=== PATIENT | female | born 1980 | race Caucasian/White ===

== ENCOUNTER 2019-05-27 06:10 | Inpatient (IN) ==
[2019-05-27] MEDS ORDERED: D5 1/2 NS 1000 ML 1,000 ML IV SCH (06:36)
[2019-05-27] MEDS ORDERED: ANCEF VIAL 1 GRAM IVP ONE (06:36)
[2019-05-27] MEDS ORDERED: METHYLENE BLUE 1% INJ ONE (06:37)
[2019-05-27] MEDS ORDERED: NS 100 ML IV 100 ML IV ONE (06:38)
[2019-05-27] MEDS ORDERED: LR 1000 ML IV 1,000 ML IV ONE (06:56)
[2019-05-27 06:57] VITALS: BMI 28.3
[2019-05-27] MEDS ORDERED: FENTANYL INJ 100 mcg ONE (06:57)
[2019-05-27] MEDS ORDERED: MORPHINE SULFATE INJ 10 MG ONE ×2 (06:57→15:13)
[2019-05-27] MEDS ORDERED: ZEMURON ONE ×2 (06:58→15:13)
[2019-05-27 07:48] LABS: BILIRUBIN,URINE NEGATIVE (NEGATIVE); BLOOD/HEMOGLOBIN,URINE NEGATIVE (NEGATIVE); GLUCOSE, URINE NEGATIVE (NEGATIVE); KETONES,URINE NEGATIVE (NEGATIVE); LEUKOCYTE ESTERASE ,URINE NEGATIVE (NEGATIVE); NITRITES,URINE NEGATIVE (NEGATIVE); PROTEIN,URINE NEGATIVE (NEGATIVE); UROBILINOGEN,URINE NORMAL (NORMAL)
[2019-05-27 07:50] LABS: APPEARANCE,URINE CLEAR (CLEAR); COLOR,URINE STRAW (YELLOW)
[2019-05-27] MEDS ORDERED: ZOFRAN INJ 4 MG VIAL IVP PRN ×2 (09:33→10:15)
[2019-05-27] MEDS ORDERED: BENADRYL INJ 50 MG VIAL IVP PRN (09:33)
[2019-05-27] MEDS ORDERED: REGLAN INJ 10 MG VIAL IVP PRN (09:33)
[2019-05-27] MEDS ORDERED: PHENERGAN INJ 25 MG IM PRN (09:33)
[2019-05-27] MEDS ORDERED: DILAUDID INJ ONE ×2 (09:33→10:05)
[2019-05-27] MEDS: DILAUDID INJ IVP PRN ×3 (09:34→10:00)
[2019-05-27] MEDS ORDERED: EPHEDRINE SULFATE INJ ONE (10:40)
[2019-05-27] MEDS: D5 1/2 NS 1000 ML 1,000 ML IV SCH ×2 (10:52→19:07)
[2019-05-27] MEDS: MORPHINE SULFATE PCA 30 MG IVP PRN ×2 (10:53→19:07)
[2019-05-27] MEDS: TORADOL 30 MG VIAL IVP PRN ×3 (13:21→23:42)
[2019-05-27] MEDS ORDERED: ULTANE GAS IN ONE (15:13)
[2019-05-27] MEDS ORDERED: DIPRIVAN VIAL ONE (15:13)
[2019-05-27] MEDS ORDERED: TORADOL 30 MG VIAL ONE (15:13)
[2019-05-27] MEDS ORDERED: XYLOCAINE 1 % (PLAIN) ONE (15:13)
[2019-05-27] MEDS ORDERED: NORCURON INJ 10 MG VIAL ONE (15:13)
[2019-05-27] MEDS ORDERED: VERSED ONE (15:13)
[2019-05-27] MEDS ORDERED: QUELICIN (OR ANECTINE) ONE (15:13)
[2019-05-27] MEDS ORDERED: NEOSTIGMINE INJ ONE (15:13)
[2019-05-27] MEDS ORDERED: ROBINUL ONE (15:13)
[2019-05-27] MEDS ORDERED: FENTANYL INJ 250 mcg ONE (15:13)
[2019-05-27] MEDS ORDERED: ZOFRAN INJ 4 MG VIAL ONE (15:13)
[2019-05-27] MEDS: BENADRYL INJ 50 MG VIAL IVP PRN (15:14)
[2019-05-27] MEDS ORDERED: SINGULAIR TAB 10 MG PO SCH (21:00)
[2019-05-28] MEDS: D5 1/2 NS 1000 ML 1,000 ML IV SCH ×3 (01:29→20:32)
[2019-05-28] MEDS: TORADOL 30 MG VIAL IVP PRN (03:27)
[2019-05-28 06:40] LABS: BASOPHILS % (AUTO) 0.3 % (0.2-1.0); EOSINOPHILS % (AUTO) 0.4 % (0.9-2.9); HEMATOCRIT 32.9 % (36.0-47.0); HEMOGLOBIN 11.1 g/dL (12.0-16.0); LYMPHOCYTES # (AUTO) 1.3 X10^3/uL (1.3-2.9); LYMPHOCYTES % (AUTO) 13.7 % (21.0-51.0); MEAN CORPUSCULAR HGB CONC 33.7 g/dL (33.0-35.0); MEAN PLATELET VOLUME 7.4 fL (7.4-11.0); MONOCYTES # (AUTO) 0.7 x10^3/uL (0.3-0.8); NEUTROPHILS # (AUTO) 7.1 x10^3/uL (2.2-4.8); NEUTROPHILS % (AUTO) 77.6 % (42.0-75.0); PLATELET COUNT 279 X10^3/uL (150.0-450.0); RED BLOOD COUNT 3.83 X10^6/uL (3.5-5.4); RED CELL DISTRIBUTION WIDTH 15.7 % (11.6-16.5); WHITE BLOOD COUNT 9.1 X10^3/uL (3.6-10.0)
[2019-05-28 06:51] LABS: BLOOD UREA NITROGEN 5 mg/dL (7-18); CALCIUM 7.5 mg/dL (8.5-10.1); CARBON DIOXIDE 27.9 mmol/L (21-32); CHLORIDE 104 mmol/L (98-107); COR NA(FOR HYPERGLY) 140 mmol/L (136-145); SODIUM 140 mmol/L (136-145); eGFR NON BLACK RACES > 60 (>60)
[2019-05-28] MEDS: SINGULAIR TAB 10 MG PO SCH (09:15)
[2019-05-28] MEDS: PREVACID PO SCH (09:15)
[2019-05-28] MEDS: ESTRACE PO SCH (09:15)
[2019-05-28] MEDS: BENICAR TAB 40 MG PO SCH (09:15)
[2019-05-28] MEDS: COLACE CAP 100 MG PO SCH ×2 (09:15→20:32)
[2019-05-28] MEDS: MOTRIN TAB 800 MG PO PRN ×3 (09:15→22:52)
[2019-05-28] MEDS: PERCOCET TAB 5/325 MG PO PRN ×3 (10:03→20:33)
[2019-05-28] MEDS: LOVENOX INJ 40 MG SYR SC SCH (13:46)
[2019-05-28] MEDS: BACTROBAN TOPICAL OINT TOP SCH ×2 (14:27→22:00)
[2019-05-28] MEDS: BENADRYL INJ 50 MG VIAL IVP PRN (20:32)
[2019-05-29] MEDS: PERCOCET TAB 5/325 MG PO PRN ×3 (01:04→10:29)
[2019-05-29] MEDS: D5 1/2 NS 1000 ML 1,000 ML IV SCH (03:09)
[2019-05-29] MEDS: BACTROBAN TOPICAL OINT TOP SCH (05:49)
[2019-05-29] MEDS: MOTRIN TAB 800 MG PO PRN (06:00)
[2019-05-29] MEDS: BENICAR TAB 40 MG PO SCH (08:32)
[2019-05-29] MEDS: PREVACID PO SCH (08:32)
[2019-05-29] MEDS: COLACE CAP 100 MG PO SCH (08:32)
[2019-05-29] MEDS: LOVENOX INJ 40 MG SYR SC SCH (08:32)
[2019-05-29] MEDS: SINGULAIR TAB 10 MG PO SCH (08:32)
[2019-05-29] MEDS: ESTRACE PO SCH (08:32)
[2019-05-29 10:55] VITALS: BP 119/65
== END 2019-05-29 10:30 | disposition home or self-care (01) | DRG 743 ==
LOC: MED/SURG 06:10
PROVIDERS: ADMIT Specialist; ATTEND Specialist
DX: I10 Essential (primary) hypertension; N83.291 Other ovarian cyst, right side; E78.2 Mixed hyperlipidemia; K21.9 Gastro-esophageal reflux disease without esophagitis; R10.2 Pelvic and perineal pain; N92.5 Other specified irregular menstruation
CPT/HCPCS: 36415; 80048; 81003; 85025; A4216; A4222; J0330; J0690; J1170; J1200; J1650; J1885; J2250; J2270; J2271; J2405; J2704; J2710; J3010; J3490; J7050; J7120; Q9968; S5010